=== PATIENT | male | born 1935 | race Caucasian/White ===

== ENCOUNTER 2018-04-05 17:32 | Emergency (ER) | payer OTHER ==
[~2018-04-05] VITALS: Ht 167.6 cm; Wt 63.5 kg
[2018-04-05] MEDS ORDERED: TETRACAINE HCL 0.5% OPTH(EYE) SOLN 4ML ONE (19:24)
[2018-04-05] MEDS ORDERED: acetaZOLAMIDE SODIUM 500 MG VL IV ONE (19:45)
[2018-04-05] MEDS ORDERED: KETOROLAC TROMETH 30 MG/ML 1ML VIAL IV ONE (19:45)
[2018-04-05] MEDS ORDERED: TIMOLOL MAL 0.5% OPTH(EYE) SOL 5ML EACHEYE ONE (19:45)
[2018-04-05] MEDS ORDERED: acetaZOLAMIDE 250 MG TAB PO ONE (20:00)
[2018-04-05] MEDS ORDERED: TIMOLOL MAL 0.5% OPTH(EYE) SOL 5ML ONE (20:08)
[2018-04-05] MEDS ORDERED: PILOCARPINE HCL 1% OPTH(EYE) SOL 15ML EACHEYE ONE ×2 (20:30→21:45)
[2018-04-05 22:00] VITALS: BP 141/78
== END 2018-04-05 22:11 | disposition home or self-care (01) ==
LOC: ER 17:32
DX: H40.9 Unspecified glaucoma (principal); E78.5 Hyperlipidemia, unspecified; I10 Essential (primary) hypertension; I25.2 Old myocardial infarction; Z90.49 Acquired absence of other specified parts of digestive tract; Z98.61 Coronary angioplasty status
CPT/HCPCS: 96374; 96375; 99284; J1120; J1885

== ENCOUNTER 2019-06-15 15:15 | Emergency (ER) | payer OTHER ==
[~2019-06-15] VITALS: Ht 172.7 cm; Wt 60.3 kg
[2019-06-15] MEDS ORDERED: SODIUM CHLORIDE 0.9% 1,000 ML IV ONE (15:49)
[2019-06-15 16:04] LABS: Eosinophils # (auto) 0.2 uL; Lymphocytes % (auto) 22.4 % (10.0-50.0); Mean Corpuscular Hgb Conc. 34.3 g/dL (32.0-36.0); Neutrophils # (auto) 3.4 uL; Nucleated Red Blood Cells % 0.1 %; Red Blood Cells 3.76 10^6/uL (4.5-5.90); Red Cell Distribution Width 12.8 % (11.8-14.3)
[2019-06-15 16:06] LABS: Basophils # (auto) 0.1 uL; Basophils % (auto) 1.2 % (0.0-2.0); Eosinophils % (auto) 3.8 % (0.0-7.0); Hematocrit 37.3 % (41.0-53.0); Hemoglobin 12.8 g/dL (13.5-17.5); Lymphocytes # (auto) 1.3 uL; Mean Corpuscular Volume 99.2 fL (80.0-100.0); Monocytes # (auto) 0.7 uL; Monocytes % (auto) 11.8 % (0.0-12.0); Neutrophils % (auto) 60.8 % (37.0-80.0); Platelet Count (auto) 181 10^3/uL (140-450); White Blood Cell 5.6 10^3/uL (4.4-10.8)
[2019-06-15 16:25] LABS: Albumin 3.7 g/dL (3.4-5.0); Anion Gap 2 (5-15); Blood Urea Nitrogen 21 mg/dL (7-18); Calcium 9.4 mg/dL (8.5-10.1); Carbon Dioxide 34 mmol/L (21-32); Chloride 106 mmol/L (98-107); Glucose 106 mg/dL (74-106); Potassium 3.9 mmol/L (3.5-5.1); Sodium 142 mmol/L (136-145)
[2019-06-15 16:31] LABS: Alanine Aminotransferase 22 U/L (16-61); Alkaline Phosphatase 70 U/L (45-117); Aspartate Aminotransferase 20 U/L (15-37); Bilirubin, Total 0.8 mg/dL (0.2-1.0); GFR African American 86 mL/min; GFR Non-African American 71 mL/min; Total Protein 6.8 g/dL (6.4-8.2)
[2019-06-15 16:33] LABS: Blood Alcohol < 3.0 mg/dL (0-5)
[2019-06-15 18:35] VITALS: BP 131/58
== END 2019-06-15 18:38 | disposition still patient (30) ==
LOC: EDBD 15:15 → ER 15:15
DX: G45.9 Transient cerebral ischemic attack, unspecified (principal); E86.0 Dehydration; I10 Essential (primary) hypertension; I25.2 Old myocardial infarction; E78.00 Pure hypercholesterolemia, unspecified; Z90.49 Acquired absence of other specified parts of digestive tract
CPT/HCPCS: 36415; 70450; 71045; 80053; 80320; 84484; 85025; 93005; 96360; 96361; 99284; J7030

== ENCOUNTER 2020-02-29 22:54 | Emergency (ER) | payer OTHER ==
[~2020-02-29] VITALS: Ht 172.7 cm; Wt 83.9 kg
[2020-03-01 00:48] VITALS: BP 169/77
[2020-03-01 01:34] LABS: Urine Bacteria NONE SEEN /hpf (None Seen); Urine Blood Negative /uL (Negative); Urine Mucus FEW (None Seen); Urine Specific Gravity 1.017 (1.001-1.035); Urine WBC 7 /hpf (0 - 3)
== END 2020-03-01 02:52 | disposition left against medical advice (07) ==
LOC: ER 22:54 → EDBD 22:54 → ER 03-01 02:52
DX: R41.82 Altered mental status, unspecified (principal); F03.90 Unspecified dementia, unspecified severity, without behavioral disturbance, psychotic disturbance, mood disturbance, and anxiety; Z53.21 Procedure and treatment not carried out due to patient leaving prior to being seen by health care provider
CPT/HCPCS: 81001

== ENCOUNTER 2020-04-17 02:44 | Emergency (ER) | payer OTHER ==
[~2020-04-17] VITALS: Ht 167.6 cm; Wt 72.6 kg
[2020-04-17 05:44] VITALS: BP 144/76
[2020-04-17] MEDS ORDERED: TEMAZEPAM 15 MG CAP PO ONE (05:45)
== END 2020-04-17 07:01 | disposition home or self-care (01) ==
LOC: EDUNIT# 02:44 → ER 02:49
DX: S70.01XA Contusion of right hip, initial encounter (principal); E78.5 Hyperlipidemia, unspecified; I10 Essential (primary) hypertension; I25.2 Old myocardial infarction; Z90.49 Acquired absence of other specified parts of digestive tract; W18.39XA Other fall on same level, initial encounter; Y93.89 Activity, other specified; Y92.89 Other specified places as the place of occurrence of the external cause; Y99.8 Other external cause status
CPT/HCPCS: 72192